=== PATIENT | female | born 1940 | race Caucasian/White ===

== ENCOUNTER 2017-11-01 17:01 | Emergency (ER) | payer MEDICARE ==
[~2017-11-01 17:01] MED LIST: METF500T6 PO; SIMV20TA6 PO
[2017-11-01] MEDS ORDERED: ONDANSETRON HCL MDV 20ML 2 MG/ML VIAL ONE (18:12)
[2017-11-01] MEDS ORDERED: KETOROLAC TROMETHAMINE 15MG/ML ONE (18:12)
[2017-11-01 18:54] LABS: APPEARANCE,URINE Cloudy (CLEAR); BILIRUBIN,URINE Negative (NEGATIVE); COLOR,URINE Yellow (YELLOW); GLUCOSE, URINE (UA) Negative (NEGATIVE); KETONES,URINE Negative (NEGATIVE); LEUKOCYTE ESTERASE ,URINE Large (NEGATIVE); NITRATE,URINE Negative (NEGATIVE); OCCULT BLOOD,URINE Small (NEGATIVE); PROTEIN,URINE Negative (NEGATIVE)
[2017-11-01 18:55] LABS: RED CELL DISTRIBUTION WIDTH 15.7 % (11.0-15.5)
[2017-11-01 19:07] LABS: CREATININE 0.8 mg/dL (0.5-1.5); POTASSIUM 4.3 mmol/L (3.5-5.1)
[2017-11-01 19:12] LABS: ALBUMIN 3.9 g/dL (3.5-5.0); BILIRUBIN,TOTAL 2.3 mg/dL (0.2-1.0); TOTAL PROTEIN, SERUM 6.8 g/dL (6.0-8.3)
[2017-11-01 19:17] LABS: BASOPHILS % (AUTO) 0.2 % (0.0-5.0); EOSINOPHILS % (AUTO) 0.9 % (0.0-8.0); HEMATOCRIT 38.8 % (36-48); LYMPHOCYTES % (AUTO) 7.3 % (21.0-51.0); MEAN CORPUSCULAR HEMOGLOBIN 27.7 pg (27.0-33.0); MEAN CORPUSCULAR HGB CONC 33.3 g/dL (32.0-36.0); MEAN CORPUSCULAR VOLUME 83.3 fL (79-99); MONOCYTES % (AUTO) 6.7 % (3.0-13.0); NEUTROPHILS % (AUTO) 84.9 % (40.0-77.0); PLATELET COUNT (AUTO) 188 K/uL (130-400); RED BLOOD CELL COUNT(AUTO) 4.65 MIL/uL (4.00-5.50); WHITE BLOOD COUNT (AUTO) 11.6 K/uL (4.8-10.8)
[2017-11-01 19:38] LABS: BACTERIA,URINE Moderate /HPF (None Seen); SQUAMOUS EPITHELIAL CELL,UR Few /HPF (0-2)
[2017-11-01 19:39] LABS: AMORPHOUS SEDIMENT,UR Few /LPF (None Seen)
[2017-11-02] MEDS ORDERED: LEVOFLOXACIN 500 MG TABLET ONE (00:26)
== END 2017-11-02 00:59 | disposition home or self-care (01) ==
LOC: EDH 17:01
DX: N10 Acute pyelonephritis (principal); N20.0 Calculus of kidney; E11.9 Type 2 diabetes mellitus without complications; E78.5 Hyperlipidemia, unspecified; Z90.722 Acquired absence of ovaries, bilateral
CPT/HCPCS: 36415; 74176; 76705; 80053; 81001; 83690; 85025; 87088; 87186; 96374; 96375; 99285; J1885

== ENCOUNTER 2018-05-20 22:27 | Inpatient (IN) | payer MEDICARE ==
[~2018-05-20] VITALS: Ht 167.6 cm; Wt 71.6 kg
[~2018-05-20 22:27] MED LIST changes: +METF-444 PO; -METF500T6 PO
[2018-05-20] MEDS ORDERED: SODIUM CHLORIDE 0.9% 1000ML 1,000 ML IV ONE ×2 (22:54→22:55)
[2018-05-20 22:55] LABS: BASOPHILS % (AUTO) 0.3 % (0.0-5.0); EOSINOPHILS % (AUTO) 2.3 % (0.0-8.0); LYMPHOCYTES % (AUTO) 20.3 % (21.0-51.0); MEAN CORPUSCULAR HEMOGLOBIN 28.2 pg (27.0-33.0); MEAN CORPUSCULAR HGB CONC 33.4 g/dL (32.0-36.0); MEAN CORPUSCULAR VOLUME 84.3 fL (79-99); MONOCYTES % (AUTO) 1.6 % (3.0-13.0); NEUTROPHILS % (AUTO) 75.5 % (40.0-77.0); NUCLEATED RED BLOOD CELLS 1.2 % (0.0-0.19); PLATELET COUNT (AUTO) 270 K/uL (130-400); RED BLOOD CELL COUNT(AUTO) 4.03 MIL/uL (4.00-5.50); RED CELL DISTRIBUTION WIDTH 14.7 % (11.0-15.5); WHITE BLOOD COUNT (AUTO) 1.2 K/uL (4.8-10.8)
[2018-05-20] MEDS ORDERED: ACETAMINOPHEN 650 MG SUPPOSITORY RC ONE (22:55)
[2018-05-20 22:58] LABS: ABG BASE EXCESS 0.7 mmol/L (-2.0-3.0); ABG HCO3 23.2 mmol/L (21.0-28.0); ABG OXYGEN SATURATION 95.1 % (95.0-99.0); ABG PCO2 31 mmHg (32-45)
[2018-05-20 23:04] LABS: CREATININE 1.9 mg/dL (0.5-1.5); POTASSIUM 3.9 mmol/L (3.5-5.1)
[2018-05-20 23:08] LABS: INR 0.96 (0.85-1.15); PROTHROMBIN TIME 10.1 SEC (9.6-11.6)
[2018-05-20 23:10] LABS: APPEARANCE,URINE Cloudy (CLEAR); BILIRUBIN,URINE Negative (NEGATIVE); COLOR,URINE Dark Yellow (YELLOW); GLUCOSE, URINE (UA) Negative (NEGATIVE); KETONES,URINE Negative (NEGATIVE); LEUKOCYTE ESTERASE ,URINE Moderate (NEGATIVE); NITRATE,URINE Positive (NEGATIVE); OCCULT BLOOD,URINE Moderate (NEGATIVE); PH,URINE 5.5 (5.0-8.0); PROTEIN,URINE POS 2+ (NEGATIVE)
[2018-05-20 23:15] LABS: ALBUMIN 2.2 g/dL (3.5-5.0); BILIRUBIN,TOTAL 1.8 mg/dL (0.2-1.0); TOTAL PROTEIN, SERUM 6.5 g/dL (6.0-8.3)
[2018-05-20] MEDS ORDERED: SODIUM CHLORIDE 0.9% 50 ML IV ONE (23:15)
[2018-05-20] MEDS ORDERED: ZOSYN 3.375GM+NS 50ML 50 ML IV ONE (23:15)
[2018-05-20 23:17] LABS: AMPHET/METH SCREEN,URINE NEGATIVE (NEGATIVE); BARBITURATE SCREEN, URINE NEGATIVE (NEGATIVE); BENZODIAZEPINES SCREEN,URINE NEGATIVE (NEGATIVE); CANNABINOID SCREEN,URINE NEGATIVE (NEGATIVE); COCAINE SCREEN,URINE NEGATIVE (NEGATIVE); OPIATE SCREEN,URINE NEGATIVE (NEGATIVE); PHENCYCLIDINE SCREEN,URINE NEGATIVE (NEGATIVE)
[2018-05-20 23:26] LABS: BACTERIA,URINE Many /HPF (None Seen); MUCUS,URINE None Seen LPF (None Seen); RBC,URINE 0-1 /HPF (0-1); RENAL EPITHELIAL CELLS,URINE Moderate /HPF (None Seen); SQUAMOUS EPITHELIAL CELL,UR None Seen /HPF (0-2); WBC,URINE 51-100 /HPF (0-1)
[2018-05-20 23:31] LABS: BAND NEUTROPHILS % (MANUAL) 12 % (0-2); EOSINOPHILS % (MANUAL) 4 % (1-6); LYMPHOCYTES % (MANUAL) 16 % (22-44); MONOCYTES % (MANUAL) 4 % (2-9); SEGMENTED NEUTROPHILS % 64 % (40-70)
[2018-05-20 23:32] LABS: MAN.DIFF COMMENT-IMPRESSION MANUAL DIFFERENTIAL; PLATELET MORPHOLOGY COMMENT ADEQUATE
[2018-05-21] VITALS (27 sets, daily range): BP systolic 88–118; BP diastolic 31–76
[2018-05-21] MEDS ORDERED: LACTATED RINGERS 1000ML 1,000 ML IV ONE ×2 (00:13→01:03)
[2018-05-21] MEDS ORDERED: NOREPINEPHRINE BITARTRATE 1 MG/1 ML ML IV ONE (01:07)
[2018-05-21] MEDS ORDERED: ONDANSETRON HCL MDV 20ML 2 MG/ML VIAL IVP PRN (01:45)
[2018-05-21] MEDS ORDERED: PHARMACY COMMUNICATION MISC SCH ×2 (01:45→23:45)
[2018-05-21] MEDS: LACTATED RINGERS 1000ML 1,000 ML IV SCH ×3 (01:45→17:51)
[2018-05-21] MEDS ORDERED: ACETAMINOPHEN 325 MG TAB PO PRN (01:45)
[2018-05-21] MEDS: ZOSYN 3.375GM+NS 50ML 50 ML IV SCH ×2 (02:00→15:03)
[2018-05-21] MEDS ORDERED: CEFTRIAXONE SODIUM 1 GM ONE (06:37)
[2018-05-21] MEDS ORDERED: SODIUM CHLORIDE 0.9% 100 ML IV ONE (07:33)
[2018-05-21] MEDS ORDERED: ZOSYN 3.375GM+NS 50ML 50 ML IV ONE (07:33)
[2018-05-21 07:57] LABS: BASOPHILS % (AUTO) 0.2 % (0.0-5.0); EOSINOPHILS % (AUTO) 0.1 % (0.0-8.0); HEMATOCRIT 33.4 % (36-48); LYMPHOCYTES % (AUTO) 4.1 % (21.0-51.0); MEAN CORPUSCULAR HEMOGLOBIN 27.4 pg (27.0-33.0); MEAN CORPUSCULAR HGB CONC 32.4 g/dL (32.0-36.0); MEAN CORPUSCULAR VOLUME 84.5 fL (79-99); NEUTROPHILS % (AUTO) 90.6 % (40.0-77.0); PLATELET COUNT (AUTO) 266 K/uL (130-400); RED BLOOD CELL COUNT(AUTO) 3.95 MIL/uL (4.00-5.50); RED CELL DISTRIBUTION WIDTH 14.9 % (11.0-15.5)
[2018-05-21 08:24] LABS: CREATININE 1.9 mg/dL (0.5-1.5)
[2018-05-21 09:57] LABS: INR 0.98 (0.85-1.15); PROTHROMBIN TIME 10.3 SEC (9.6-11.6)
[2018-05-21] MEDS ORDERED: PNEUMOCOCCAL VACCINE POLYVALENT 0.5 ML/VIAL [PPV] IM SCH (10:00)
[2018-05-21] MEDS ORDERED: ASPI81TA40 PO (10:23)
[2018-05-21] MEDS ORDERED: NIAC500T22 PO (10:23)
[2018-05-21] MEDS ORDERED: CALC-1038 PO (10:23)
[2018-05-21] MEDS ORDERED: MAGN400C PO (10:23)
[2018-05-21] MEDS ORDERED: L.AC1CAP6 PO (10:23)
[2018-05-21] MEDS ORDERED: MULT-1203 PO (10:23)
[2018-05-21] MEDS ORDERED: VITA1CAP85 PO (10:23)
[2018-05-21] MEDS ORDERED: KRIL1CAP18 PO (10:23)
[2018-05-21] MEDS ORDERED: GELA650C4 PO (10:23)
[2018-05-21] MEDS ORDERED: MELA10TA7 PO (10:23)
[2018-05-21] MEDS ORDERED: IODIXANOL 320 MG/ML 100 ML VIAL ONE (12:22)
[2018-05-21] MEDS ORDERED: LIDOCAINE HCL 1% MDV 50ML VIAL ONE (12:22)
[2018-05-21] MEDS ORDERED: MIDAZOLAM HCL 1 MG/ML 2ML VIAL ONE (13:36)
[2018-05-21] MEDS ORDERED: FENTANYL CITRATE PF 50 MCG/1 ML 2ML VIAL ONE (13:37)
[2018-05-21] MEDS ORDERED: SODIUM BICARB 50MEQ 50ML VIAL ONE (13:37)
[2018-05-21 22:03] LABS: BASOPHILS % (AUTO) 0.3 % (0.0-5.0); EOSINOPHILS % (AUTO) 0.9 % (0.0-8.0); HEMATOCRIT 30.4 % (36-48); LYMPHOCYTES % (AUTO) 12.4 % (21.0-51.0); MEAN CORPUSCULAR HEMOGLOBIN 27.3 pg (27.0-33.0); MEAN CORPUSCULAR HGB CONC 32.7 g/dL (32.0-36.0); MEAN CORPUSCULAR VOLUME 83.5 fL (79-99); NEUTROPHILS % (AUTO) 80.4 % (40.0-77.0); PLATELET COUNT (AUTO) 203 K/uL (130-400); RED BLOOD CELL COUNT(AUTO) 3.64 MIL/uL (4.00-5.50); RED CELL DISTRIBUTION WIDTH 14.8 % (11.0-15.5); WHITE BLOOD COUNT (AUTO) 8.1 K/uL (4.8-10.8)
[2018-05-21 22:14] LABS: CREATININE 1.6 mg/dL (0.5-1.5); POTASSIUM 3.8 mmol/L (3.5-5.1)
[2018-05-21 22:37] LABS: ALBUMIN 1.7 g/dL (3.5-5.0); BILIRUBIN,TOTAL 1.2 mg/dL (0.2-1.0); TOTAL PROTEIN, SERUM 5.4 g/dL (6.0-8.3)
[2018-05-21 22:42] LABS: TROPONIN I 3.03 ng/mL (0.00-0.06)
[2018-05-21] MEDS ORDERED: ASPIRIN 325 MG TABLET PO STA (22:49)
[2018-05-21] MEDS ORDERED: ATORVASTATIN CALCIUM 10 MG TABLET PO STA (22:49)
[2018-05-21 22:52] LABS: CRP QUANTITATIVE 125.7 mg/L (0.00-9.0)
[2018-05-21] MEDS ORDERED: CLOPIDOGREL BISULFATE 75 MG TAB PO SCH (23:00)
[2018-05-21] MEDS ORDERED: ASPIRIN 81MG TAB.CHEW PO SCH (23:00)
[2018-05-21] MEDS ORDERED: ATORVASTATIN CALCIUM 20 MG TABLET PO SCH (23:00)
[2018-05-21] MEDS ORDERED: ASPIRIN 325 MG TABLET ONE (23:24)
[2018-05-21] MEDS ORDERED: ATORVASTATIN CALCIUM 40 MG TABLET ONE (23:25)
[2018-05-22] VITALS (15 sets, daily range): BP systolic 85–116; BP diastolic 45–69
[2018-05-22] MEDS: ZOSYN 3.375GM+NS 50ML 50 ML IV SCH ×2 (01:40→14:49)
[2018-05-22] MEDS: LACTATED RINGERS 1000ML 1,000 ML IV SCH ×3 (03:13→22:07)
[2018-05-22 03:40] LABS: BASOPHILS % (AUTO) 0.4 % (0.0-5.0); EOSINOPHILS % (AUTO) 1.2 % (0.0-8.0); HEMATOCRIT 28.4 % (36-48); LYMPHOCYTES % (AUTO) 11.7 % (21.0-51.0); MEAN CORPUSCULAR HEMOGLOBIN 27.6 pg (27.0-33.0); MEAN CORPUSCULAR HGB CONC 32.9 g/dL (32.0-36.0); MEAN CORPUSCULAR VOLUME 83.9 fL (79-99); MONOCYTES % (AUTO) 7.5 % (3.0-13.0); NEUTROPHILS % (AUTO) 79.2 % (40.0-77.0); NUCLEATED RED BLOOD CELLS 0.1 % (0.0-0.19); PLATELET COUNT (AUTO) 225 K/uL (130-400); RED BLOOD CELL COUNT(AUTO) 3.38 MIL/uL (4.00-5.50); RED CELL DISTRIBUTION WIDTH 14.8 % (11.0-15.5); WHITE BLOOD COUNT (AUTO) 7.9 K/uL (4.8-10.8)
[2018-05-22 03:59] LABS: ALBUMIN 1.6 g/dL (3.5-5.0); CREATININE 1.5 mg/dL (0.5-1.5); POTASSIUM 3.5 mmol/L (3.5-5.1)
[2018-05-22] MEDS: ASPIRIN 81MG TAB.CHEW PO SCH (08:37)
[2018-05-22] MEDS ORDERED: CLOPIDOGREL BISULFATE 75 MG TAB PO SCH (09:00)
[2018-05-22] MEDS ORDERED: ASPIRIN 325 MG TABLET PO SCH (09:00)
[2018-05-22] MEDS: ATORVASTATIN CALCIUM 10 MG TABLET PO SCH (22:08)
[2018-05-23] MEDS ORDERED: SODIUM CHLORIDE 0.9% 50 ML IV ONE (00:37)
[2018-05-23] MEDS: ZOSYN 3.375GM+NS 50ML 50 ML IV SCH ×2 (00:53→02:05)
[2018-05-23 03:44] VITALS: BP 115/59
[2018-05-23 04:36] LABS: MEAN CORPUSCULAR HEMOGLOBIN 27.1 pg (27.0-33.0); MEAN CORPUSCULAR HGB CONC 32.3 g/dL (32.0-36.0); MEAN CORPUSCULAR VOLUME 83.9 fL (79-99); PLATELET COUNT (AUTO) 215 K/uL (130-400); WHITE BLOOD COUNT (AUTO) 7.6 K/uL (4.8-10.8)
[2018-05-23 05:17] LABS: CREATININE 1.2 mg/dL (0.5-1.5); POTASSIUM 3.6 mmol/L (3.5-5.1)
[2018-05-23 07:41] VITALS: BP 121/71
[2018-05-23] MEDS: ISOSORBIDE MONO 30MG TAB SR PO SCH (08:50)
[2018-05-23] MEDS: ASPIRIN 81MG TAB.CHEW PO SCH (08:50)
[2018-05-23] MEDS: LACTATED RINGERS 1000ML 1,000 ML IV SCH (11:27)
[2018-05-23 11:55] VITALS: BP 113/65
[2018-05-23] MEDS ORDERED: FUROSEMIDE 10 MG/ML 2ML VIAL IV SCH (13:45)
[2018-05-23] MEDS: LEVOFLOXACIN 500 MG TABLET PO SCH (14:18)
[2018-05-23 16:04] VITALS: BP 117/66
[2018-05-23] MEDS ORDERED: Isosorbide Mono 30MG Tab Sr PO (17:53)
[2018-05-23] MEDS ORDERED: ATOR10 PO (17:53)
[2018-05-23] MEDS ORDERED: TRAM50TA4 PO (17:53)
[2018-05-23] MEDS ORDERED: LEVO500T2 PO (17:53)
[2018-05-23 19:54] VITALS: BP 112/72
[2018-05-23] MEDS: ATORVASTATIN CALCIUM 10 MG TABLET PO SCH (20:57)
[2018-05-24] VITALS (7 sets, daily range): BP systolic 115–159; BP diastolic 63–82
[2018-05-24 06:17] LABS: CREATININE 1.2 mg/dL (0.5-1.5); POTASSIUM 3.5 mmol/L (3.5-5.1)
[2018-05-24] MEDS ORDERED: FUROSEMIDE 10 MG/ML 2ML VIAL IV SCH ×2 (07:00→14:30)
[2018-05-24] MEDS ORDERED: POTASSIUM CHLORIDE 20 MEQ ERTAB PO SCH ×2 (07:30→14:30)
[2018-05-24] MEDS: ASPIRIN 81MG TAB.CHEW PO SCH (08:40)
[2018-05-24] MEDS: LEVOFLOXACIN 500 MG TABLET PO SCH (08:40)
[2018-05-24] MEDS: ISOSORBIDE MONO 30MG TAB SR PO SCH (08:40)
[2018-05-24] MEDS: ATORVASTATIN CALCIUM 10 MG TABLET PO SCH (20:18)
[2018-05-25 06:20] VITALS: BP 133/76
[2018-05-25 06:55] LABS: CREATININE 1.1 mg/dL (0.5-1.5); POTASSIUM 3.9 mmol/L (3.5-5.1)
[2018-05-25] MEDS: REGADENOSON 0.4 MG/5 ML PF SYG IVP SCH ×2 (07:15→12:31)
[2018-05-25 07:51] VITALS: BP 133/77
[2018-05-25] MEDS: ASPIRIN 81MG TAB.CHEW PO SCH (10:47)
[2018-05-25] MEDS: ISOSORBIDE MONO 30MG TAB SR PO SCH (10:47)
[2018-05-25] MEDS: LEVOFLOXACIN 500 MG TABLET PO SCH (10:47)
[2018-05-25 11:03] VITALS: BP 140/91
[2018-05-25] MEDS ORDERED: FUROSEMIDE 10 MG/ML 4ML VIAL IV SCH (13:30)
[2018-05-25 16:35] VITALS: BP 97/69
[2018-05-25 20:05] VITALS: BP 100/56
[2018-05-25] MEDS: METOPROLOL TARTRATE 25 MG TAB PO SCH (20:12)
[2018-05-25] MEDS: ATORVASTATIN CALCIUM 10 MG TABLET PO SCH (20:13)
[2018-05-26 03:44] LABS: CREATININE 1.2 mg/dL (0.5-1.5); POTASSIUM 3.9 mmol/L (3.5-5.1)
[2018-05-26 03:45] LABS: HEMATOCRIT 31.4 % (36-48); MEAN CORPUSCULAR HEMOGLOBIN 27.9 pg (27.0-33.0); MEAN CORPUSCULAR HGB CONC 33.6 g/dL (32.0-36.0); MEAN CORPUSCULAR VOLUME 83.2 fL (79-99); PLATELET COUNT (AUTO) 331 K/uL (130-400); RED BLOOD CELL COUNT(AUTO) 3.77 MIL/uL (4.00-5.50); WHITE BLOOD COUNT (AUTO) 6.4 K/uL (4.8-10.8)
[2018-05-26 04:00] LABS: B-TYPE NATRIURETIC PEPTIDE 238 pg/mL (0-100)
[2018-05-26 07:51] VITALS: BP 122/71
[2018-05-26] MEDS: METOPROLOL TARTRATE 25 MG TAB PO SCH (07:57)
[2018-05-26] MEDS: ASPIRIN 81MG TAB.CHEW PO SCH (07:57)
[2018-05-26] MEDS: ISOSORBIDE MONO 30MG TAB SR PO SCH (07:57)
[2018-05-26] MEDS: LEVOFLOXACIN 500 MG TABLET PO SCH (07:57)
[2018-05-26 12:01] VITALS: BP 120/73
[2018-05-26 16:14] VITALS: BP 111/64
== END 2018-05-26 15:00 | disposition home or self-care (01) | DRG 871 ==
LOC: EDH 22:27 → EDHIP 05-21 00:45 → 2BH 05-21 08:18 → 4CH 05-22 16:27 → 2AH 05-24 16:49
PROVIDERS: ADMIT Hospitalist; ATTEND Hospitalist
PROC: 0T9030Z Drainage of Right Kidney with Drainage Device, Percutaneous Approach (ICD-10-PCS; principal; 2018-05-23)
DX: A41.51 Sepsis due to Escherichia coli [E. coli] (principal); I21.4 Non-ST elevation (NSTEMI) myocardial infarction; R65.21 Severe sepsis with septic shock; N13.6 Pyonephrosis; J98.11 Atelectasis; I50.22 Chronic systolic (congestive) heart failure; N17.9 Acute kidney failure, unspecified; E86.1 Hypovolemia; E78.5 Hyperlipidemia, unspecified; E11.69 Type 2 diabetes mellitus with other specified complication; Z79.84 Long term (current) use of oral hypoglycemic drugs; Z93.6 Other artificial openings of urinary tract status; E78.00 Pure hypercholesterolemia, unspecified; R09.02 Hypoxemia; N18.9 Chronic kidney disease, unspecified; E11.22 Type 2 diabetes mellitus with diabetic chronic kidney disease; K57.90 Diverticulosis of intestine, part unspecified, without perforation or abscess without bleeding
CPT/HCPCS: 10030; 36415; 36600; 50432; 70450; 71045; 71250; 74176; 78452; 80048; 80053; 80305; 81001; 82550; 82803; 82948; 83605; 83690; 83874; 83880; 84484; 85025; 85027; 85378; 85610; 85730; 86140; 87040; 87070; 87077; 87186; 87804; 90732; 93005; 93017; 93306; 96374; 99156; 99157; 99291; A9500; C1729; C1894; J0696; J1644; J1940; J2250; J2543; J2785; J3010; J3490; J7030; J7120; Q9967

== ENCOUNTER → 2018-06-05 | Outpatient (CLI) | payer OTHER ==
[~2018-06-05] MED LIST changes: +ASCO10007 PO; +ASPI81TA40 PO; +ATOR10 PO; +CALC-1038 PO; +CALC-866 PO; +CALC600T12 PO; +GELA650C4 PO; +Isosorbide Mono 30MG Tab Sr PO; +KRIL1CAP18 PO; +KRIL1CAP19 PO; +L.AC1CAP6 PO; +LEVO500T2 PO; +MAGN400C PO; +MELA10TA7 PO; +MULT-1203 PO; +NIAC500T22 PO; +PYRI100T2 PO; +TRAM50TA4 PO; +VITA1CAP85 PO
== END | disposition home or self-care (01) ==
LOC: OIH 14:29
PROVIDERS: ATTEND Internal Medicine Cardiovascular Disease
DX: Z13.6 Encounter for screening for cardiovascular disorders (principal)
CPT/HCPCS: 75571

== ENCOUNTER 2018-06-12 08:30 | Day surgery (SDC) | payer MEDICARE ==
[2018-06-10 15:06] LABS: BASOPHILS % (AUTO) 0.7 % (0.0-5.0); EOSINOPHILS % (AUTO) 4.3 % (0.0-8.0); HEMATOCRIT 36.1 % (36-48); LYMPHOCYTES % (AUTO) 30.4 % (21.0-51.0); MEAN CORPUSCULAR HEMOGLOBIN 27.3 pg (27.0-33.0); MEAN CORPUSCULAR HGB CONC 32.7 g/dL (32.0-36.0); MEAN CORPUSCULAR VOLUME 83.5 fL (79-99); MONOCYTES % (AUTO) 6.8 % (3.0-13.0); NEUTROPHILS % (AUTO) 57.8 % (40.0-77.0); PLATELET COUNT (AUTO) 228 K/uL (130-400); RED BLOOD CELL COUNT(AUTO) 4.32 MIL/uL (4.00-5.50); RED CELL DISTRIBUTION WIDTH 15.2 % (11.0-15.5); WHITE BLOOD COUNT (AUTO) 5.1 K/uL (4.8-10.8)
[2018-06-10 15:15] VITALS: BP 117/56
[2018-06-10 15:16] LABS: CREATININE 0.9 mg/dL (0.5-1.5); POTASSIUM 4.8 mmol/L (3.5-5.1)
[~2018-06-12] VITALS: Ht 170.2 cm; Wt 69.0 kg
[2018-06-12] VITALS (17 sets, daily range): BP systolic 113–150; BP diastolic 58–72
[~2018-06-12 08:30] MED LIST changes: -CALC-1038 PO; -KRIL1CAP18 PO; -L.AC1CAP6 PO; -LEVO500T2 PO; +LEVOFLOXACIN 500 MG/D5W 100 ML 100 ML IV SCH; -SIMV20TA6 PO; -TRAM50TA4 PO; -VITA1CAP85 PO
[2018-06-12] MEDS ORDERED: LEVOFLOXACIN 500 MG/D5W 100 ML 100 ML ONE (09:29)
[2018-06-12] MEDS ORDERED: SODIUM CHLORIDE 0.9% 1000ML 1,000 ML IV ONE (09:29)
[2018-06-12] MEDS ORDERED: LIDOCAINE PF 2% 5ML ABBOJECT ONE (11:18)
[2018-06-12] MEDS ORDERED: PROPOFOL 10 MG/ML 20ML VIAL IV ONE (11:19)
[2018-06-12] MEDS ORDERED: FENTANYL CITRATE PF 50 MCG/1 ML 2ML VIAL ONE (11:28)
[2018-06-12] MEDS ORDERED: IOHEXOL-350 50ML VIAL IV ONE (11:28)
[2018-06-12] MEDS ORDERED: OPIUM/BELLADONNA ALKALOIDS 1 EACH SUPP.RECT RC ONE (12:18)
[2018-06-12] MEDS ORDERED: PHENAZOPYRIDINE HCL 200 MG TABLET ONE (13:24)
== END 2018-06-12 13:55 | disposition home or self-care (01) ==
LOC: DAH 08:30
PROVIDERS: ATTEND Urology
DX: N13.6 Pyonephrosis (principal); E11.9 Type 2 diabetes mellitus without complications; Z79.84 Long term (current) use of oral hypoglycemic drugs; Z79.899 Other long term (current) drug therapy; Z85.820 Personal history of malignant melanoma of skin
CPT/HCPCS: 36415; 50389; 52332; 74420; 80048; 82948 ×2; 85025; 93005; A4344; A4358; A4510; A4600; C1758 ×2; C1769; C2617; J1956; J2001; J2704; J3010; J7030; Q9967

== ENCOUNTER → 2018-07-02 | Outpatient (CLI) | payer MEDICARE ==
[~2018-07-02] MED LIST changes: -ASCO10007 PO; -LEVOFLOXACIN 500 MG/D5W 100 ML 100 ML IV SCH
== END | disposition home or self-care (01) ==
LOC: RAH 11:53
PROVIDERS: ATTEND Urology
DX: N20.0 Calculus of kidney (principal)
CPT/HCPCS: 74018

== ENCOUNTER → 2018-08-24 | Outpatient (CLI) | payer MEDICARE | END | disposition home or self-care (01) | LOC: RAH 10:47 | PROVIDERS: ATTEND Urology | DX: N13.2 Hydronephrosis with renal and ureteral calculous obstruction (principal); N13.4 Hydroureter; N32.89 Other specified disorders of bladder; M47.819 Spondylosis without myelopathy or radiculopathy, site unspecified; M85.88 Other specified disorders of bone density and structure, other site | CPT/HCPCS: 74176 ==

== ENCOUNTER 2018-10-02 09:02 | Day surgery (SDC) | payer MEDICARE ==
[2018-09-30 16:30] LABS: BASOPHILS % (AUTO) 0.5 % (0.0-5.0); EOSINOPHILS % (AUTO) 3.4 % (0.0-8.0); HEMATOCRIT 38.5 % (36-48); LYMPHOCYTES % (AUTO) 29.8 % (21.0-51.0); MEAN CORPUSCULAR HEMOGLOBIN 28.2 pg (27.0-33.0); MEAN CORPUSCULAR HGB CONC 32.9 g/dL (32.0-36.0); MEAN CORPUSCULAR VOLUME 85.6 fL (79-99); MONOCYTES % (AUTO) 6.5 % (3.0-13.0); NEUTROPHILS % (AUTO) 59.8 % (40.0-77.0); NUCLEATED RED BLOOD CELLS 0.1 % (0.0-0.19); PLATELET COUNT (AUTO) 183 K/uL (130-400); RED CELL DISTRIBUTION WIDTH 14.6 % (11.0-15.5); WHITE BLOOD COUNT (AUTO) 4.9 K/uL (4.8-10.8)
[2018-09-30 16:36] VITALS: BP 122/63
[2018-09-30 16:49] LABS: CREATININE 0.9 mg/dL (0.5-1.5); POTASSIUM 4.5 mmol/L (3.5-5.1)
[2018-10-02] VITALS (17 sets, daily range): BP systolic 115–148; BP diastolic 55–82
[~2018-10-02] VITALS: Ht 170.2 cm; Wt 69.4 kg
[~2018-10-02 09:02] MED LIST changes: -ATOR10 PO; -Isosorbide Mono 30MG Tab Sr PO; +LEVOFLOXACIN 500 MG/D5W 100 ML 100 ML IV SCH; -MAGN400C PO; -MELA10TA7 PO; +MELA5TAB14 PO; -PYRI100T2 PO; +SIMV20TA6 PO
[2018-10-02] MEDS ORDERED: SODIUM CHLORIDE 0.9% 1000ML 1,000 ML IV ONE (09:42)
[2018-10-02] MEDS ORDERED: LEVOFLOXACIN 500 MG/D5W 100 ML 100 ML ONE (09:43)
[2018-10-02] MEDS ORDERED: BENZOCAINE/LANOLIN/ALOE VERA 60 ML AEROSOL TP SCH (09:45)
[2018-10-02] MEDS ORDERED: IOHEXOL-350 50ML VIAL IV ONE (10:09)
[2018-10-02] MEDS ORDERED: TAMS0.4C32 PO (10:19)
[2018-10-02] MEDS ORDERED: PROPOFOL 10 MG/ML 20ML VIAL IV ONE (11:32)
[2018-10-02] MEDS ORDERED: MIDAZOLAM HCL 1 MG/ML 2ML VIAL ONE (11:32)
[2018-10-02] MEDS ORDERED: ROCURONIUM 10MG/1ML SYR 10 MG/ML ML ONE (11:32)
[2018-10-02] MEDS ORDERED: FENTANYL CITRATE PF 50 MCG/1 ML 2ML VIAL ONE ×2 (11:33→12:47)
[2018-10-02] MEDS ORDERED: GLYCOPYRROLATE 1 MG/5 ML SYRINGE ONE (12:30)
[2018-10-02] MEDS ORDERED: OPIUM/BELLADONNA ALKALOIDS 1 EACH SUPP.RECT RC ONE (13:55)
[2018-10-02] MEDS ORDERED: PHENAZOPYRIDINE HCL 200 MG TABLET ONE (14:40)
== END 2018-10-02 15:30 | disposition home or self-care (01) ==
LOC: DAH 09:02
PROVIDERS: ATTEND Urology
DX: N13.2 Hydronephrosis with renal and ureteral calculous obstruction (principal); Z98.890 Other specified postprocedural states; E11.9 Type 2 diabetes mellitus without complications; Z79.899 Other long term (current) drug therapy; Z79.84 Long term (current) use of oral hypoglycemic drugs
CPT/HCPCS: 36415; 52356; 76000; 80048; 82948 ×2; 85025; 93005; A4344; A4354; A4358; A4450; A4510; A4600; A4649; A5113; A6207; C1758; C1769; C2617; J1956; J2250; J2704; J3010 ×2; J3490; J7030 ×2; Q9967

== ENCOUNTER 2018-12-12 15:22 | Emergency (ER) | payer MEDICARE ==
[~2018-12-12 15:22] MED LIST changes: -ASPI81TA40 PO; -KRIL1CAP19 PO; -LEVOFLOXACIN 500 MG/D5W 100 ML 100 ML IV SCH; +TAMS0.4C32 PO
[2018-12-12] MEDS ORDERED: IBUPROFEN 400 MG TABLET ONE (15:49)
== END 2018-12-12 16:13 | disposition home or self-care (01) ==
LOC: EDH 15:22
DX: S52.502A Unspecified fracture of the lower end of left radius, initial encounter for closed fracture (principal); S53.401A Unspecified sprain of right elbow, initial encounter; Z87.442 Personal history of urinary calculi; E11.9 Type 2 diabetes mellitus without complications; E78.5 Hyperlipidemia, unspecified; W18.39XA Other fall on same level, initial encounter; Y93.01 Activity, walking, marching and hiking; Y92.89 Other specified places as the place of occurrence of the external cause; Y99.8 Other external cause status
CPT/HCPCS: 29125; 73080; 73110

== ENCOUNTER 2019-02-26 13:35 | Emergency (ER) | payer MEDICARE ==
[2019-02-26] MEDS ORDERED: SODIUM CHLORIDE 0.9% 1000ML 1,000 ML IV ONE (14:02)
[2019-02-26] MEDS ORDERED: ONDANSETRON HCL 4 MG/2 ML VIAL ONE (14:04)
[2019-02-26] MEDS ORDERED: KETOROLAC TROMETHAMINE 30MG/ML ONE (14:05)
[2019-02-26 14:08] LABS: BASOPHILS % (AUTO) 0.7 % (0.0-5.0); HEMATOCRIT 39.9 % (36-48); LYMPHOCYTES % (AUTO) 12.5 % (21.0-51.0); MEAN CORPUSCULAR HEMOGLOBIN 28.1 pg (27.0-33.0); MEAN CORPUSCULAR HGB CONC 32.5 g/dL (32.0-36.0); MEAN CORPUSCULAR VOLUME 86.5 fL (79-99); MONOCYTES % (AUTO) 4.3 % (3.0-13.0); NEUTROPHILS % (AUTO) 81.5 % (40.0-77.0); PLATELET COUNT (AUTO) 211 K/uL (130-400); RED BLOOD CELL COUNT(AUTO) 4.62 MIL/uL (4.00-5.50); RED CELL DISTRIBUTION WIDTH 15.1 % (11.0-15.5)
[2019-02-26 14:23] LABS: ALBUMIN 4.2 g/dL (3.5-5.0); BILIRUBIN,DIRECT 0.4 mg/dL (0.0-0.3); BILIRUBIN,TOTAL 2.3 mg/dL (0.2-1.0); CREATININE 1.1 mg/dL (0.5-1.5); POTASSIUM 4.1 mmol/L (3.5-5.1)
[2019-02-26 14:31] LABS: BILIRUBIN,URINE Negative (NEGATIVE); COLOR,URINE Yellow (YELLOW); GLUCOSE, URINE (UA) Negative (NEGATIVE); KETONES,URINE Negative (NEGATIVE); LEUKOCYTE ESTERASE ,URINE Moderate (NEGATIVE); NITRATE,URINE Negative (NEGATIVE); OCCULT BLOOD,URINE Negative (NEGATIVE); PH,URINE >=9.0 (5.0-8.0); PROTEIN,URINE Negative (NEGATIVE); UROBILINOGEN,URINE 0.2 mg/dL (0.2-1.0)
[2019-02-26 15:01] LABS: APPEARANCE,URINE SLIGHTLY CLOUDY (CLEAR)
[2019-02-26 15:13] LABS: BACTERIA,URINE Few /HPF (None Seen); RBC,URINE 0-1 /HPF (0-1)
[2019-02-26 15:14] LABS: AMORPHOUS SEDIMENT,UR Few /LPF (None Seen); SQUAMOUS EPITHELIAL CELL,UR Rare /HPF (0-2)
[2019-02-26 17:07] LABS: INR 0.95 (0.85-1.15)
== END 2019-02-26 18:55 | disposition short-term general hospital (02) ==
LOC: EDH 13:35
DX: I61.9 Nontraumatic intracerebral hemorrhage, unspecified (principal); R51 Headache; R53.1 Weakness; E11.9 Type 2 diabetes mellitus without complications; E78.5 Hyperlipidemia, unspecified; Z87.442 Personal history of urinary calculi
CPT/HCPCS: 36415; 70450; 80048; 80076; 81001; 82550; 83690; 84484; 85025; 85610; 85730; 86850; 86900; 86901; 93005; 96374; 96375; 99291; J1885; J2405; J7030

== ENCOUNTER 2019-05-12 19:03 | Inpatient (IN) | payer MEDICARE ==
[~2019-05-12] VITALS: Ht 157.5 cm; Wt 63.4 kg
[~2019-05-12 19:03] MED LIST changes: +SIMV-43 PO; -SIMV20TA6 PO
[2019-05-12] MEDS ORDERED: CEFTRIAXONE SODIUM 1 GM ONE ×2 (19:23→19:50)
[2019-05-12] MEDS ORDERED: LEVOFLOXACIN 500 MG/D5W 100 ML 100 ML ONE (19:23)
[2019-05-12] MEDS ORDERED: SODIUM CHLORIDE 0.9% 1000ML 1,000 ML IV ONE (19:24)
[2019-05-12 19:58] LABS: POTASSIUM 3.4 mmol/L (3.5-5.1)
[2019-05-12 20:00] LABS: INR 1.12 (0.85-1.15); PARTIAL THROMBOPLASTIN TIME 28.7 SEC (26.3-35.5); PROTHROMBIN TIME 11.7 SEC (9.6-11.6)
[2019-05-12 20:05] LABS: BASOPHILS % (AUTO) 0.1 % (0.0-5.0); EOSINOPHILS % (AUTO) 0.1 % (0.0-8.0); HEMATOCRIT 26.4 % (36-48); LYMPHOCYTES % (AUTO) 6.4 % (21.0-51.0); MEAN CORPUSCULAR HEMOGLOBIN 28.1 pg (27.0-33.0); MEAN CORPUSCULAR HGB CONC 33.1 g/dL (32.0-36.0); MONOCYTES % (AUTO) 5.5 % (3.0-13.0); NEUTROPHILS % (AUTO) 87.9 % (40.0-77.0); PLATELET COUNT (AUTO) 195 K/uL (130-400); RED BLOOD CELL COUNT(AUTO) 3.11 MIL/uL (4.00-5.50); RED CELL DISTRIBUTION WIDTH 15.7 % (11.0-15.5); WHITE BLOOD COUNT (AUTO) 5.7 K/uL (4.8-10.8)
[2019-05-12 20:13] LABS: APPEARANCE,URINE CLOUDY (CLEAR); BILIRUBIN,URINE NEGATIVE (NEGATIVE); COLOR,URINE YELLOW (YELLOW); GLUCOSE, URINE (UA) NEGATIVE (NEGATIVE); KETONES,URINE 5 mg/dL (NEGATIVE); LEUKOCYTE ESTERASE ,URINE MODERATE (NEGATIVE); NITRATE,URINE POSITIVE (NEGATIVE); OCCULT BLOOD,URINE LARGE (NEGATIVE); PH,URINE 6.5 (5.0-8.0); PROTEIN,URINE 30 mg/dL (NEGATIVE)
[2019-05-12 20:17] LABS: ALBUMIN 2.4 g/dL (3.5-5.0); BILIRUBIN,TOTAL 2.1 mg/dL (0.2-1.0); TOTAL PROTEIN, SERUM 5.3 g/dL (6.0-8.3); TROPONIN I 0.1 ng/mL (0.00-0.06)
[2019-05-12 20:19] LABS: BACTERIA,URINE Few /HPF (None Seen); RBC,URINE 51-100 /HPF (0-1); SQUAMOUS EPITHELIAL CELL,UR Rare /HPF (0-2)
[2019-05-12] MEDS ORDERED: ACETAMINOPHEN 325 MG TAB PO PRN ×2 (22:00)
[2019-05-12] MEDS ORDERED: LEVOFLOXACIN 500 MG/D5W 100 ML 100 ML IV SCH (22:30)
[2019-05-12] MEDS ORDERED: ACETAMINOPHEN 325 MG TAB ONE (22:57)
[2019-05-12] MEDS ORDERED: HYDROXYZINE HCL 25 MG TABLET ONE (22:57)
[2019-05-12 23:40] VITALS: BP 121/65
[2019-05-13] MEDS: SODIUM CHLORIDE 0.9% 1000ML 1,000 ML IV SCH ×4 (00:10→17:14)
[2019-05-13] MEDS ORDERED: LIDOCAINE HCL-MPF 1% 2ML VIAL IV PRN (01:15)
[2019-05-13] MEDS ORDERED: POTASSIUM CHLORIDE 20MEQ/100ML 100 ML IV PRN (01:15)
[2019-05-13] MEDS ORDERED: POTASSIUM CHLORIDE 20 MEQ ERTAB PO PRN (01:15)
[2019-05-13 04:00] VITALS: BP 129/59
[2019-05-13 05:41] LABS: BASOPHILS % (AUTO) 0.3 % (0.0-5.0); EOSINOPHILS % (AUTO) 0.1 % (0.0-8.0); HEMATOCRIT 26.7 % (36-48); MEAN CORPUSCULAR HEMOGLOBIN 27.8 pg (27.0-33.0); MEAN CORPUSCULAR HGB CONC 32.3 g/dL (32.0-36.0); MEAN CORPUSCULAR VOLUME 86.3 fL (79-99); MONOCYTES % (AUTO) 7.9 % (3.0-13.0); NEUTROPHILS % (AUTO) 83.7 % (40.0-77.0); PLATELET COUNT (AUTO) 177 K/uL (130-400); RED CELL DISTRIBUTION WIDTH 15.7 % (11.0-15.5); WHITE BLOOD COUNT (AUTO) 4.9 K/uL (4.8-10.8)
[2019-05-13] MEDS ORDERED: LISI10TA7 PO (05:54)
[2019-05-13] MEDS ORDERED: APIX2.5T PO (05:54)
[2019-05-13] MEDS ORDERED: METF-444 PO (05:54)
[2019-05-13] MEDS ORDERED: NIAC-48 PO (05:54)
[2019-05-13] MEDS ORDERED: DOXA2TAB2 PO (05:54)
[2019-05-13] MEDS ORDERED: ACET-2247 PO (05:54)
[2019-05-13] MEDS ORDERED: TRAM50TA4 PO (05:54)
[2019-05-13] MEDS ORDERED: LACT10SO9 PO (05:54)
[2019-05-13] MEDS ORDERED: MULT-685 PO (05:54)
[2019-05-13] MEDS ORDERED: SIMV-43 PO (05:54)
[2019-05-13] MEDS ORDERED: LORA0.5T2 PO (05:54)
[2019-05-13 05:56] LABS: % IRON SATURATION 5.2 % (22-44)
[2019-05-13 06:04] LABS: ALBUMIN 2.1 g/dL (3.5-5.0); BILIRUBIN,TOTAL 1.5 mg/dL (0.2-1.0); POTASSIUM 3.6 mmol/L (3.5-5.1); TOTAL PROTEIN, SERUM 4.7 g/dL (6.0-8.3)
[2019-05-13] MEDS: INSULIN HUMULIN R 100 UNIT/ML 3ML SQ SCH ×4 (06:38→20:16)
[2019-05-13] MEDS: CEFTRIAXONE SODIUM 1 GM IVP SCH ×2 (06:48→17:10)
[2019-05-13 08:00] VITALS: BP 124/70
[2019-05-13] MEDS ORDERED: EPOETIN ALFA 10,000 UNIT/ML VIAL SQ SCH (08:45)
[2019-05-13] MEDS ORDERED: TRAMADOL HCL 50 MG TABLET PO PRN (08:45)
[2019-05-13] MEDS: LACTULOSE 20 GM/30 ML UDCUP PO SCH (09:00)
[2019-05-13] MEDS: NIACIN 500 MG SRTAB PO SCH (10:29)
[2019-05-13] MEDS: IRON SUCROSE COMPLEX 100 MG in SODIUM CHLORIDE 0.9% 50 ML IV SCH (10:30)
[2019-05-13] MEDS: APIXABAN 2.5 MG TABLET PO SCH ×2 (10:30→20:19)
[2019-05-13] MEDS: MULTIVITAMIN WITH MINERALS TABLET PO SCH (10:30)
[2019-05-13] MEDS: LISINOPRIL 10 MG TABLET PO SCH (10:31)
[2019-05-13 12:12] VITALS: BP 120/69
--- NOTE | 2019-05-13 15:12 | NUR ---
RD Notification Pt admitted for acute UTI and Fever. Pt with Hx of DM, CVA with L. Sided weakness. Pt asleep upon visit. 75% eaten mushroom soup on Pt tray. Recommend to add Glucerna TID secondary to moderate protein-calorie malnutrition. Also rec to add Vegetarian diet modification as per RN. Pt LBM 05/12/19. Pt monitored labs: Hgb 8.6, Hct 26.7, Cl 112, GFR 57, Fe 7, TIBC 133, %Sat 5.2, Alb 2.1. RD to continue to monitor. Please notify as nutritional concerns arise. Thank you. Addendum: 05/13/19 at [address] RD Amended: Links added.
--- NOTE | 2019-05-13 16:00 | NUR ---
INITIAL MET W PATIENT WHO DOES NOT WANT OT GO BACK TO [facility] WHERE SHE WAS RECD THER[place]Y FOR HER STROKE. WANTS TO GO HOME. WAS REC'ING ST/PT/OT AT [facility]- USES A WALKER SOME OF THE TIME, HAS A HANDICAP BATH ROOM , LIVES W SPOUSE CALL TO [facility] STATES PLEASE SEAK TO [facility]EL[facility]A HE SI IN A WHEELCHAIR AND CANNOT LOOK AFTER HIS . PT WILL NEED TO COME BACK TO [facility] FOR REHAB WILL FOLLOW UP Addendum: 05/14/19 at 1840 by VAUGHN EASLEY RN CM Amended: Links added.
[2019-05-13] MEDS: METFORMIN HCL 500 MG TABLET PO SCH (16:59)
[2019-05-13] MEDS ORDERED: LEVOFLOXACIN 500 MG/D5W 100 ML 100 ML IV SCH (17:00)
[2019-05-13 17:56] VITALS: BP 123/62
[2019-05-13 19:30] VITALS: BP 123/65
[2019-05-13] MEDS: TAMSULOSIN HCL 0.4 MG CAP.ER.24H PO SCH (20:19)
[2019-05-13] MEDS: LORAZEPAM 0.5 MG TABLET PO PRN (20:19)
[2019-05-13] MEDS ORDERED: LEVOFLOXACIN 250 MG/D5W 50ML 50 ML IVPB SCH (21:00)
[2019-05-13] MEDS ORDERED: SIMVASTATIN 20 MG TABLET PO SCH (21:00)
[2019-05-14] VITALS: BP 123/64
[2019-05-14] MEDS: SODIUM CHLORIDE 0.9% 1000ML 1,000 ML IV SCH ×2 (00:54→21:32)
[2019-05-14 04:00] VITALS: BP 135/68
[2019-05-14 04:13] LABS: BASOPHILS % (AUTO) 0.6 % (0.0-5.0); EOSINOPHILS % (AUTO) 1.7 % (0.0-8.0); HEMATOCRIT 25.1 % (36-48); LYMPHOCYTES % (AUTO) 16.6 % (21.0-51.0); MEAN CORPUSCULAR HEMOGLOBIN 28.2 pg (27.0-33.0); MEAN CORPUSCULAR HGB CONC 32.8 g/dL (32.0-36.0); NEUTROPHILS % (AUTO) 70.1 % (40.0-77.0); PLATELET COUNT (AUTO) 141 K/uL (130-400); RED BLOOD CELL COUNT(AUTO) 2.92 MIL/uL (4.00-5.50); RED CELL DISTRIBUTION WIDTH 15.8 % (11.0-15.5); WHITE BLOOD COUNT (AUTO) 4.2 K/uL (4.8-10.8)
[2019-05-14 04:42] LABS: CREATININE 0.8 mg/dL (0.5-1.5); MAGNESIUM 1.6 mg/dL (1.80-2.40); PHOSPHORUS 2.4 mg/dL (2.5-4.9); POTASSIUM 3.2 mmol/L (3.5-5.1); TROPONIN I 0.19 ng/mL (0.00-0.06)
[2019-05-14] MEDS: INSULIN HUMULIN R 100 UNIT/ML 3ML SQ SCH ×4 (06:55→21:00)
[2019-05-14] MEDS: CEFTRIAXONE SODIUM 1 GM IVP SCH ×2 (06:55→20:21)
[2019-05-14 08:00] VITALS: BP 138/60
[2019-05-14] MEDS: LEVOFLOXACIN 750 MG/D5W 150 ML 150 ML IV SCH (08:53)
[2019-05-14] MEDS: MULTIVITAMIN WITH MINERALS TABLET PO SCH (08:54)
[2019-05-14] MEDS: APIXABAN 2.5 MG TABLET PO SCH ×2 (08:54→21:23)
[2019-05-14] MEDS: IRON SUCROSE COMPLEX 100 MG in SODIUM CHLORIDE 0.9% 50 ML IV SCH (08:54)
[2019-05-14] MEDS: LACTULOSE 20 GM/30 ML UDCUP PO SCH (08:54)
[2019-05-14] MEDS: LISINOPRIL 10 MG TABLET PO SCH (08:54)
[2019-05-14] MEDS: NIACIN 500 MG SRTAB PO SCH (08:54)
[2019-05-14] MEDS: METFORMIN HCL 500 MG TABLET PO SCH ×2 (08:54→17:00)
[2019-05-14] MEDS ORDERED: MAGNESIUM 2GM PREMIX 50ML 50 ML IV PRN (09:00)
[2019-05-14] MEDS: NEUTRA-PHOS PACKET 1 EACH PO SCH ×5 (09:00→21:25)
[2019-05-14 12:00] VITALS: BP 117/58
[2019-05-14] MEDS: MAGNESIUM OXIDE 400 MG TABLET PO SCH (12:36)
--- NOTE | 2019-05-14 14:30 | NUR ---
SPOUSE STATES PT NEEDS TO GO BACK TO [facility] TO RESUME DIANN, HE IS UNABLE TO CARE FOR HER Addendum: 05/14/19 at 1844 by VAUGHN EASLEY RN CM Amended: Links added.
[2019-05-14 16:00] VITALS: BP 143/85
[2019-05-14 19:05] VITALS: BP 134/62
[2019-05-14] MEDS: ATORVASTATIN CALCIUM 20 MG TABLET PO SCH (21:22)
[2019-05-14] MEDS: LORAZEPAM 0.5 MG TABLET PO PRN (21:22)
[2019-05-14] MEDS: TAMSULOSIN HCL 0.4 MG CAP.ER.24H PO SCH (21:22)
[2019-05-15 00:04] VITALS: BP 141/78
[2019-05-15] MEDS: SODIUM CHLORIDE 0.9% 1000ML 1,000 ML IV SCH ×3 (02:17→18:17)
[2019-05-15 04:10] VITALS: BP 139/71
[2019-05-15 05:45] LABS: HEMATOCRIT 24.1 % (36-48); MEAN CORPUSCULAR HEMOGLOBIN 27.9 pg (27.0-33.0); MEAN CORPUSCULAR HGB CONC 32.8 g/dL (32.0-36.0); PLATELET COUNT (AUTO) 139 K/uL (130-400); RED BLOOD CELL COUNT(AUTO) 2.84 MIL/uL (4.00-5.50); RED CELL DISTRIBUTION WIDTH 15.9 % (11.0-15.5); WHITE BLOOD COUNT (AUTO) 3.6 K/uL (4.8-10.8)
[2019-05-15 06:23] LABS: CREATININE 0.7 mg/dL (0.5-1.5); PHOSPHORUS 2.7 mg/dL (2.5-4.9); TROPONIN I 0.15 ng/mL (0.00-0.06)
[2019-05-15] MEDS: INSULIN HUMULIN R 100 UNIT/ML 3ML SQ SCH ×4 (06:26→20:44)
[2019-05-15] MEDS: CEFTRIAXONE SODIUM 1 GM IVP SCH ×2 (06:44→17:54)
[2019-05-15 08:00] VITALS: BP 139/73
[2019-05-15] MEDS: APIXABAN 2.5 MG TABLET PO SCH ×2 (08:51→19:37)
[2019-05-15] MEDS: LORAZEPAM 0.5 MG TABLET PO PRN ×2 (08:51→19:47)
[2019-05-15] MEDS: NIACIN 500 MG SRTAB PO SCH (08:51)
[2019-05-15] MEDS: METFORMIN HCL 500 MG TABLET PO SCH ×2 (08:51→17:54)
[2019-05-15] MEDS: MULTIVITAMIN WITH MINERALS TABLET PO SCH (08:51)
[2019-05-15] MEDS: MAGNESIUM OXIDE 400 MG TABLET PO SCH (08:52)
[2019-05-15] MEDS: LACTULOSE 20 GM/30 ML UDCUP PO SCH (08:52)
[2019-05-15] MEDS: LISINOPRIL 10 MG TABLET PO SCH (08:52)
[2019-05-15] MEDS: IRON SUCROSE COMPLEX 100 MG in SODIUM CHLORIDE 0.9% 50 ML IV SCH (08:53)
[2019-05-15] MEDS: NEUTRA-PHOS PACKET 1 EACH PO SCH ×2 (08:54→17:54)
[2019-05-15 12:00] VITALS: BP 135/77
[2019-05-15 16:00] VITALS: BP 139/62
[2019-05-15] MEDS ORDERED: NEUTRA-PHOS PACKET 1 EACH ONE (17:53)
[2019-05-15] MEDS: TAMSULOSIN HCL 0.4 MG CAP.ER.24H PO SCH (19:37)
[2019-05-15] MEDS: ATORVASTATIN CALCIUM 20 MG TABLET PO SCH (19:37)
[2019-05-15 20:00] VITALS: BP 141/77
[2019-05-16] VITALS: BP 145/79
[2019-05-16] MEDS: SODIUM CHLORIDE 0.9% 1000ML 1,000 ML IV SCH ×2 (02:24→08:44)
[2019-05-16 03:30] VITALS: BP 141/74
[2019-05-16] MEDS: CEFTRIAXONE SODIUM 1 GM IVP SCH ×2 (05:50→17:01)
[2019-05-16] MEDS: INSULIN HUMULIN R 100 UNIT/ML 3ML SQ SCH ×4 (06:15→20:35)
[2019-05-16 07:58] VITALS: BP 133/78
[2019-05-16] MEDS: MAGNESIUM OXIDE 400 MG TABLET PO SCH (08:43)
[2019-05-16] MEDS: METFORMIN HCL 500 MG TABLET PO SCH ×2 (08:43→17:01)
[2019-05-16] MEDS: LACTULOSE 20 GM/30 ML UDCUP PO SCH (08:43)
[2019-05-16] MEDS: LISINOPRIL 10 MG TABLET PO SCH (08:43)
[2019-05-16] MEDS: APIXABAN 2.5 MG TABLET PO SCH ×2 (08:43→20:23)
[2019-05-16] MEDS: MULTIVITAMIN WITH MINERALS TABLET PO SCH (08:43)
[2019-05-16] MEDS: POTASSIUM CHLORIDE 10% ELIXIR 20 MEQ/15 ML UDCUP PO PRN ×3 (08:44→15:18)
[2019-05-16] MEDS: LEVOFLOXACIN 750 MG/D5W 150 ML 150 ML IV SCH (08:44)
[2019-05-16] MEDS: IRON SUCROSE COMPLEX 100 MG in SODIUM CHLORIDE 0.9% 50 ML IV SCH (08:44)
[2019-05-16] MEDS ORDERED: COMPOUND IV MISC 1 EACH IVSOLN MISC PRN (09:00)
[2019-05-16 12:00] VITALS: BP 145/105
[2019-05-16 16:01] VITALS: BP 137/74
[2019-05-16 20:00] VITALS: BP 139/79
[2019-05-16] MEDS: TAMSULOSIN HCL 0.4 MG CAP.ER.24H PO SCH (20:23)
[2019-05-16] MEDS: ATORVASTATIN CALCIUM 20 MG TABLET PO SCH (20:33)
[2019-05-16] MEDS: LORAZEPAM 0.5 MG TABLET PO PRN (20:33)
[2019-05-17] VITALS: BP 152/79
--- NOTE | 2019-05-17 03:20 | NUR ---
STATUS Pt slept well.Voiced no complaints of pain or discomfort.
[2019-05-17 04:00] VITALS: BP 121/62
[2019-05-17 04:48] LABS: BASOPHILS % (AUTO) 0.7 % (0.0-5.0); EOSINOPHILS % (AUTO) 3.3 % (0.0-8.0); HEMATOCRIT 26.3 % (36-48); LYMPHOCYTES % (AUTO) 26.8 % (21.0-51.0); MEAN CORPUSCULAR HEMOGLOBIN 28.4 pg (27.0-33.0); MEAN CORPUSCULAR HGB CONC 33.5 g/dL (32.0-36.0); MEAN CORPUSCULAR VOLUME 84.7 fL (79-99); MONOCYTES % (AUTO) 11.8 % (3.0-13.0); NEUTROPHILS % (AUTO) 57.4 % (40.0-77.0); PLATELET COUNT (AUTO) 170 K/uL (130-400); RED BLOOD CELL COUNT(AUTO) 3.11 MIL/uL (4.00-5.50); RED CELL DISTRIBUTION WIDTH 16.1 % (11.0-15.5); WHITE BLOOD COUNT (AUTO) 4.5 K/uL (4.8-10.8)
[2019-05-17 05:08] LABS: CREATININE 0.7 mg/dL (0.5-1.5)
[2019-05-17] MEDS: CEFTRIAXONE SODIUM 1 GM IVP SCH (05:22)
[2019-05-17] MEDS: INSULIN HUMULIN R 100 UNIT/ML 3ML SQ SCH (05:28)
[2019-05-17 08:00] VITALS: BP 130/62
[2019-05-17] MEDS: IRON SUCROSE COMPLEX 100 MG in SODIUM CHLORIDE 0.9% 50 ML IV SCH (09:19)
[2019-05-17] MEDS: MULTIVITAMIN WITH MINERALS TABLET PO SCH (09:20)
[2019-05-17] MEDS: METFORMIN HCL 500 MG TABLET PO SCH (09:20)
[2019-05-17] MEDS: LISINOPRIL 10 MG TABLET PO SCH (09:20)
[2019-05-17] MEDS: APIXABAN 2.5 MG TABLET PO SCH (09:21)
[2019-05-17] MEDS: MAGNESIUM OXIDE 400 MG TABLET PO SCH (09:21)
[2019-05-17] MEDS: LACTULOSE 20 GM/30 ML UDCUP PO SCH (09:21)
--- NOTE | 2019-05-17 09:47 | NUR ---
CM Note: [facility] acceptance Spoke to Jessica w/[facility], pt has reacceptance, state does not need new pasrr. Pt safe to dc via [facility] transport van. Primary nurse aware. CM to cont to follow up.
[2019-05-17] MEDS ORDERED: ATOR20TA65 PO (11:42)
[2019-05-17 11:46] VITALS: BP 130/65
[2019-05-17] MEDS ORDERED: ZOSYN 3.375GM+NS 50ML 50 ML IV SCH (13:00)
--- NOTE | 2019-05-17 14:00 | NUR ---
REPORT Called report to Roberto Mejia LVN at [facility]. He rosemary be sending the van. Pending for [employer] truck driver to arrive for transportation to [facility].
--- NOTE | 2019-05-17 15:18 | NUR ---
RD FOLLOW UP Pt tolerating GI Soft/Daniels diet order as per Pt with no report of GI distress and PO intake at 100%. Pt reports dislikes Glucerna nutritional supplement. Recommend Propass TID. Pt LBM 05/17/19. Pt monitored labs: Hgb 8.8, Hct 26.3, Cl 112, Glu 124. RD to continue to monitor. Please notify as additional nutrition concerns arise. Thank you. Addendum: 05/17/19 at [address] Amended: Links added.
--- NOTE | 2019-05-17 15:30 | NUR ---
TRANSPORT FOLLOW UP Called [facility] back. Stated they have not bee able to locate funeral limousine driver. Working on it.
[2019-05-17 16:00] VITALS: BP 130/75
== END 2019-05-17 17:00 | DRG 872 ==
LOC: EDH 19:03 → EDHIP 21:56 → 3BH 22:49 → UNDODISIN 05-17 17:00
PROVIDERS: ADMIT Internal Medicine; ATTEND Internal Medicine
DX: A41.9 Sepsis, unspecified organism (principal); E44.0 Moderate protein-calorie malnutrition; N39.0 Urinary tract infection, site not specified; I69.354 Hemiplegia and hemiparesis following cerebral infarction affecting left non-dominant side; N13.6 Pyonephrosis; F41.9 Anxiety disorder, unspecified; E11.9 Type 2 diabetes mellitus without complications; E83.39 Other disorders of phosphorus metabolism; E83.42 Hypomagnesemia; E87.6 Hypokalemia; E78.5 Hyperlipidemia, unspecified; D50.9 Iron deficiency anemia, unspecified; I10 Essential (primary) hypertension; Z68.25 Body mass index [BMI] 25.0-25.9, adult; Z87.442 Personal history of urinary calculi; Z80.3 Family history of malignant neoplasm of breast; Z83.518 Family history of other specified eye disorder; Z82.49 Family history of ischemic heart disease and other diseases of the circulatory system
CPT/HCPCS: 36415; 71045; 76770; 80048; 80053; 80061; 81001; 82270; 82550; 82948; 83540; 83550; 83605; 83735; 83874; 84100; 84132; 84145; 84484; 85025; 85027; 85610; 85730; 86308; 87040; 87077; 87088; 87186; 87804; 93005; 97039; G0378; J0696; J0885; J1756; J1815; J1956; J3480; J3490; J7030